=== PATIENT | female | born 1975 | race American Indian/Alaskan Native ===

== ENCOUNTER 2016-07-16 21:22 | Emergency (ER) | payer SELFPAY ==
--- NOTE | 2016-07-16 22:01 | Emergency Department Report ---
Chief Complaint: High BP Stated Complaint: HEADACHE/TIRED/POSS HIGH BP/SWELLING HANDS - HPI History of Present Illness: Patient reports that she has been having elevated blood pressure for the past several days. Relates of also having headache and dizziness with it. Relates yesterday she was trying to drive somewhere but forgot where she was going and ended up going somewhere else. Relates of having headaches, dizziness for the couple of days. Also relates of having some swelling to the hands and feet. 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 - Exam Vital Signs: Vital Signs 07/16/16 21:41 Temperature 98.4 F Pulse Rate 60 Respiratory 18 Rate Blood Pressure 154/92 O2 Sat by Pulse 100 Oximetry Physical Exam: no neurofocal deficits noted on exam. Strength normal. No significant swelling noted to the extremities. Patient is alert, oriented x 4. MSE screening note: Focused history and physical exam performed. Due to findings the following was ordered: Dizziness/headache work up ordered. Awaiting room placement. ED Disposition for MSE Condition: Stable
[2016-07-16 22:59] LABS: Creatine Kinase 457 units/L (30-135); Creatine Kinase MB 2.1 ng/mL (0.0-4.0)
[2016-07-16 23:00] LABS: Alanine Aminotransferase 19 units/L (7-56); Albumin 4.4 g/dL (3.9-5); Albumin/Globulin Ratio 1.8 %; Alkaline Phosphatase 51 units/L (35-129); Anion Gap 18 mmol/L; Bilirubin,Total 0.5 mg/dL (0.1-1.2); Blood Urea Nitrogen 12 mg/dL (7-17); Calcium 9.1 mg/dL (8.4-10.2); Carbon Dioxide 26 mmol/L (22-30); Chloride 102.1 mmol/L (98-107); Glucose 92 mg/dL (65-100); Potassium 3.8 mmol/L (3.6-5.0); Sodium 142 mmol/L (137-145); Total Protein 6.9 g/dL (6.3-8.2)
[2016-07-16 23:12] LABS: Basophils % (Auto) 0.5 % (0.0-1.8); Eosinophils % (Auto) 1.4 % (0.0-4.3); Hematocrit 38.7 % (30.3-42.9); Hemoglobin 12.6 gm/dl (10.1-14.3); Mean Corpuscular HGB Conc 33 % (30-34); Mean Corpuscular Hemoglobin 31 pg (28-32); Mean Corpuscular Volume 94 fl (79-97); Platelet Count 202 K/mm3 (140-440); Red Blood Count 4.11 M/mm3 (3.65-5.03); White Blood Count 6.1 K/mm3 (4.5-11.0)
[2016-07-16 23:15] LABS: INR 0.91 (0.87-1.13)
[2016-07-17 02:12] LABS: Bacteria,Urine 1+ /HPF (Negative); Bilirubin,Urine NEG (Negative); Blood,Urine LG (Negative); Ketones,Urine NEG (Negative); Leukocyte Esterase,Urine NEG (Negative); Mucus,Urine FEW /HPF; Nitrite,Urine NEG (Negative); Urobilinogen,Urine < 2.0 mg/dL (<2.0)
[2016-07-17] MEDS ORDERED: CATAPRES PO ONE (02:46)
--- NOTE | 2016-07-17 10:21 | XRay Report ---
ROUTINE CHEST, TWO VIEWS: HISTORY: Hypertension. The trachea, heart, mediastinal contour, lung soliz and bony thorax are unremarkable. IMPRESSION: Unremarkable chest x-ray.
[2016-07-17] MEDS ORDERED: TENORMIN PO ONE ×2 (10:24)
--- NOTE | 2016-07-17 10:29 | Emergency Department Report ---
HPI - General Chief Complaint: High BP Time Seen by Provider: 07/17/16 09:46 - HPI HPI: Chief complaint: Hypertension HPI: Patient with a history of hypertension who states that the last several days her blood pressure has been higher than usual. Patient noticed that her blood pressure was 192/120 last night and took an extra 50 mg of atenolol last evening. Patient had R he taken 50 mg tablet in the morning. Patient complains of intermittent spinning and nausea as well as a throbbing headache. Patient states usually when she has these symptoms her blood pressure is elevated. Patient does have a previous history of migraine headaches and these headaches are similar. Patient states she has had a CAT scan when she's had these symptoms in the past. Patient is currently not seeing a neurologist. Patient's blood pressure has improved but she has been waiting here in the emergency department and her headache is almost completely resolved as is her vertigo. Mode of arrival: private car Source: Patient Began: Several days ago Duration: See above Context: See above Quality: Throbbing Severity: Currently 0 out of 10 Improved with: Blood pressure medication Worsened with: Spinning is worse with standing and head movement Associated signs and symptoms: Nausea vomiting ED Past Medical Hx - Past Medical History Previous Medical History?: Yes Hx Hypertension: Yes Additional medical history: Interstitial Cystitis, Help syndrome - Surgical History Past Surgical History?: Yes Additional Surgical History: 2009 - Social History Smoking Status: Never Smoker - Medications Home Medications: Home Medications Medication Instructions Recorded Confirmed Last Taken Type Atenolol [Tenormin] 50 mg PO DAILY 02/14/15 07/17/16 07/16/16 19:00 History Atenolol [Tenormin] 25 mg PO DAILY #30 tab 07/17/16 Unknown Rx Meclizine [Antivert] 25 mg PO TID PRN #10 tablet 07/17/16 Unknown Rx ED Review of Systems ROS: Stated complaint: HEADACHE/TIRED/POSS HIGH BP/SWELLING HANDS Other details as noted in HPI ROS Constitutional: No fever ENT: No uri symptoms Cardiovascular: No chest pain Respiratory: No sob or cough GI: No diarrhea : No dysuria frequency or urgency, Skin: No rash Neuro: No focal weakness or numbness Psych: No depression Daniel/lymph: Bilateral pedal edema which is not as bad as usual. Physical Exam - Physical Exam Vital Signs: Vital Signs 07/16/16 07/17/16 07/17/16 21:41 02:56 08:11 Temperature 98.4 F Pulse Rate 60 65 73 Respiratory 18 18 Rate Blood Pressure 154/92 190/90 189/100 Blood Pressure [Left] O2 Sat by Pulse 100 Oximetry 07/17/16 09:19 Temperature Pulse Rate 57 L Respiratory 18 Rate Blood Pressure Blood Pressure 184/116 [Left] O2 Sat by Pulse Oximetry Physical Exam: GENERAL: The patient is well-developed well-nourished . HEENT: Normocephalic. Atraumatic. Extraocular motions are intact. Patient has moist mucous membranes. Extinguishable nystagmus. NECK: Supple. No meningitic signs are noted. There is no adenopathy noted. CHEST/LUNGS: Clear to auscultation. There is no respiratory distress noted. HEART/CARDIOVASCULAR: Regular. There is no tachycardia. There is no gallop rub or murmur. ABDOMEN: Abdomen is soft, nontender. Patient has normal bowel sounds. There is no abdominal distention. SKIN: There is no rash. There is trace bilateral pedal edema. There is no diaphoresis. NEURO: The patient is awake, alert, and oriented. The patient is cooperative. The patient has no focal neurologic deficits. The patient has normal speech. MUSCULOSKELETAL: There is no tenderness or deformity. There is no limitation range of motion. There is no evidence of acute injury. ED Course Vital Signs 07/16/16 07/17/16 07/17/16 21:41 02:56 08:11 Temperature 98.4 F Pulse Rate 60 65 73 Respiratory 18 18 Rate Blood Pressure 154/92 190/90 189/100 Blood Pressure [Left] O2 Sat by Pulse 100 Oximetry 07/17/16 09:19 Temperature Pulse Rate 57 L Respiratory 18 Rate Blood Pressure Blood Pressure 184/116 [Left] O2 Sat by Pulse Oximetry - Reevaluation(s) Reevaluation #1: 07/17/16 Patient was given her morning dose of atenolol prior to discharge. ED Medical Decision Making - Lab Data Result diagrams: 07/16/16 22:21 07/16/16 22:21 Laboratory Tests 07/16/16 07/16/16 22:21 Unknown Total Creatine Kinase 457 H CK-MB (CK-2) 2.1 CK-MB (CK-2) Rel Index 0.4 Troponin T < 0.010 Urine HCG, Qual Negative Critical care attestation.: If time is entered above; I have spent that time in minutes in the direct care of this critically ill patient, excluding procedure time. ED Disposition Clinical Impression: Essential hypertension, Migraine headache, Vertigo Disposition: DISCHARGED TO HOME OR SELFCARE Is pt being admited?: No Does the pt Need Aspirin: No Condition: Stable Instructions: Hypertension (ED), Vertigo (ED), Migraine Headache (ED) Prescriptions: Atenolol [Tenormin] 25 mg PO DAILY #30 tab Meclizine [Antivert] 25 mg PO TID PRN #10 tablet PRN Reason: Vertigo Referrals: FER FERRER MD [Staff Physician] - 7-10 days (Follow-up with Dr. Ferrer to recheck blood pressure) JARAD ANDREWS MD [Staff Physician] - 7-10 days (Dr. Andrews is a neurologist who you may follow up with.) Time of Disposition: 10:27
[2016-07-17 10:42] VITALS: BP 143/72
== END 2016-07-17 10:44 | disposition home or self-care (01) ==
LOC: ED 21:22
DX: I10 Essential (primary) hypertension (principal); G43.909 Migraine, unspecified, not intractable, without status migrainosus; R42 Dizziness and giddiness
CPT/HCPCS: 36415; 71020; 80053; 81001; 81025; 82550; 82553; 82962; 84484; 85025; 85610; 93005; 93010; 99284